=== PATIENT | female | born 1935 | race Caucasian/White ===

== ENCOUNTER 2018-01-16 14:24 | Observation (INO) | payer MEDICARE, SELFPAY ==
[2018-01-16] VITALS (7 sets, daily range): BP systolic 144–220; BP diastolic 69–93; PULSE 58–75; RESP 10–18; TEMP 36.3–37; O2SAT 94–97; BMI 21.6; BMI 22.9
--- NOTE | 2018-01-16 15:19 | CT_ITS ---
STUDY: CT BRAIN WITHOUT CONTRAST REASON FOR EXAM: Female, 82 years old. Confusion RADIATION DOSAGE (If Supplied By Facility): CTDIvol = ( 44.99 ) mGy, DLP = ( 745.49 ) mGycm TECHNIQUE: Transaxial CT imaging of the brain was performed without administration of intravenous contrast material. Individualized dose optimization techniques were used for this CT. COMPARISON: 09/08/2015 FINDINGS: There is no acute bleed or infarct. There are stable chronic ischemic and atrophic changes. The ventricles are normal in configuration. There is no hydrocephalus. The visualized paranasal sinuses are clear. There is fluid in the left mastoid air cells. The right mastoid air cells are clear. There is no skull fracture. CT/Brain/Head without Contrast IMPRESSION: Stable chronic ischemic and atrophic changes. No acute intracranial abnormality. Left mastoid effusion. Electronically Signed: Ag Arriaga, at 16:37 EDT Tel , Service support ,
--- NOTE | 2018-01-16 15:19 | RAD_ITS ---
STUDY: X-RAY CHEST REASON FOR EXAM: Female, 82 years old. Confusion TECHNIQUE: Frontal view of the chest COMPARISON: 01/11/2016 FINDINGS: There are stable emphysematous changes. The lungs are otherwise clear. There are no pleural effusions. There is no pneumothorax. The heart is normal in size. The visualized osseous structures are within normal limits. RAD/Chest 1 View (Portable) IMPRESSION: No acute thoracic pathology. Electronically Signed: Ag Arriaga, at 16:12 EDT Tel , Service support ,
--- NOTE | 2018-01-16 15:20 | EKG12_ITS ---
Test Reason : GEN ILLNESS Blood Pressure : / mmHG Vent. Rate : 055 BPM Atrial Rate : 055 BPM P-R Int : 158 ms QRS Dur : 084 ms QT Int : 448 ms P-R-T Axes : 066 030 079 degrees QTc Int : 428 ms Sinus bradycardia Septal infarct , age undetermined Abnormal ECG Confirmed by SHARONA MATHEW, DULCE ([id number]), editor managing newspaper SAMI BUCKLEY ([id number]) on 01/20/2018 1:41:38 PM Referred By: VAIBHAV Confirmed By:DULCE TABOR MD
--- NOTE | 2018-01-16 15:55 | NURSING ---
LEFT MESSAGE ON JACQUELINE, CASE MANAGEMENT, PHONE
[2018-01-16 15:57] LABS: Absolute Lymphocyte Count 1.33 X10^3/ul (0.83-4.51); Absolute Neutrophil Count 2.9 X10^3/uL (2.0-7.7); Basophil# 0.02 X10^3/uL; Basophil% 0.4 % (0-1); Eosinophil# 0.05 X10^3/uL; Hematocrit 43.8 % (37-47); Hemoglobin 14.4 g/dl (12.0-15.0); Lymphocyte # 1.33 X10^3/ul (4.0); Lymphocyte % 27.1 % (19-41); Mean Corp Hgb Conc 32.9 g/gl (32-36); Mean Corpuscular Hgb 28.3 pg (27.0-32.0); Mean Corpuscular Volume 86.2 fL (81-99); Mean Platelet Vol. 10.5 fl (6.2-12.0); Monocyte# 0.62 X10^3/uL; Monocyte% 12.6 % (0-10); Neutrophil # 2.88 X10^3/uL (2.7-7.7); Neutrophil % 58.7 % (47-70); Platelet Count 236 K/mm3 (150-450); RBC Distribution Width CV 16.8 % (11.6-14.6); RBC Distribution Width SD 53.5 fl (35.1-43.9); Red Blood Count 5.08 M/mm3 (4.2-5.4); White Blood Count 4.9 K/mm3 (4.4-11.0)
[2018-01-16 16:03] LABS: Anion Gap 9 (5-15); BUN 22 mg/dL (7-18); BUN/Creat Ratio 28.6 RATIO (10-20); Calcium,Total 8.7 mg/dL (8.5-10.1); Chloride 109 mmol/L (98-107); Creatinine, Serum 0.77 mg/dL (0.55-1.02); EST Glomerular Filtration Rate 76 mL/min (>60); Est Glom Filt Rate - Afr Amer 92 mL/min (>60); Glucose 101 mg/dL (74-106); POSITIVE COUNT NO; POSITIVE DIFFERENTIAL NO; POSITIVE MORPHOLOGY NO; Potassium 3.9 mmol/L (3.5-5.1); Sodium Level 143 mmol/L (136-145)
--- NOTE | 2018-01-16 16:44 | CM.ED ---
CM consulted re: SNF placement. Patient has [employer] M[employer] PPO, which will require a precertification for half-way placement. I discussed outpatient placement referral options with Marco A, patient's son, at bedside. Due to the weekend, the referral would be placed on Friday. Marco A states that he and his sister usually rotate checking on their mom. His sister is out of town until Friday and Marco A states he works and there will be no one to make sure the patient doesn't wander out of the home. Marco A states that his mother was admitted to an psychiatry hospital, in [place], years ago and was diagnosed with schizophrenia. She was a patient of the counseling center, but missed a few appointments and they closed her case. Marco A states she has not seen a psychiatrist in a couple years. Patient may qualify for half-way medicaid. If patient remains in the hospital, social work may assist with this application. Provider updated. Should placement to half-way need to be made from the hospital, the precertification with [facility] will begin on Friday. Social work/case management will follow.
[2018-01-16 17:06] LABS: Mucous, Urine 0 SEEN /hpf (<or=2+); Red Blood Cells-Urine 0 SEEN /hpf (0-5)
[2018-01-16 17:11] LABS: Color, Urine Yellow (Yellow); Glucose, Dipstick Normal (Normal); Ketone-Dipstick Negative (Negative); Leukocyte Esterase-Dipstick 100 /ul (Negative); Nitrite-Dipstick Negative (Negative); Occult Blood-Urine 10 /ul (Negative); Protein-Dipstick Negative (Negative); Urine Bilirubin Dipstick Negative (Negative); Urine Clarity Sl. Cloudy (Clear); Urine Urobilinogen Normal (Normal)
[2018-01-16 17:27] LABS: Hyaline Cast 0-5 SEEN /lpf (0-5)
[2018-01-16 17:28] LABS: Bacteria 4+ /hpf (None Seen); Squamous Epithelial Cells - UA 10-25 SEEN /hpf (5-10); White Blood Cells 25-50 SEEN /hpf (0-5)
--- NOTE | 2018-01-16 18:09 | NURSING ---
DR GREY FOR DR ESPOSITO
--- NOTE | 2018-01-16 18:12 | ED.VISSUMM ---
- ER Visit Summary Date of Service: 01/16/18 Chief Complaint: Change of mental status History of Present Illness: The patient is a 82 F presenting for evaluation secondary change in mental status. Patient is an independent living, has an underlying history of dementia versus psychiatric disease and is on Haldol. Patient apparently intermittently has been having some issues where she has been wandering over the neighbors houses with her coat off, wandering the streets, and today she was picked up by police while she was walking down the middle of the street when she was supposedly looking for her son. Patient denies any symptoms at this time, son is concerned about her safety and wishes for her to be evaluated for potential increased level of care. Physical Examination: Vital signs are within normal limits, patient is afebrile. General: Patient is well-nourished well-developed and in no acute distress. Head: Normocephalic, atraumatic Eyes: Pupils equal round and reactive bilaterally, extra occular motion intact bialterally ENT: Moist mucous membranes Neck: Supple, no lymphadenopathy, no JVD, no meningismus CVS: Heart regular rate and rhythm, no murmurs, heart sounds are soft, rubs or gallops, radial pulses 2+ bilaterally Resp: Respirations nondistressed, lung sounds clear bilaterally Abdomen: Soft, nontender, nondistended, no palpable masses, normal bowel sounds Back: Nontender Extremities: Nontender, atraumatic, active full range of motion, no peripheral edema Skin: warm, no rashes, no petechia Neuro: Alert and oriented x 4, CN 2-12 intact, no lateralizing neurological defecits Psyc: FLAt affect Test Results: CT brain shows chronic changes. Chest x-ray shows chronic changes per radiology. EKG shows sinus rate of [address] segments normal T waves. CBC chemistry troponin found to be unremarkable, urinalysis shows evidence of infection Emergency Department Course and Treatment: Patient presented secondary to altered mental status. She was worked up for the possibility of delirium she did end up having some evidence of possible UTI she was given a dose of Rocephin. I do spoke with case management about the possibility of placement of the patient out of the emergency department, they state that they would not be able to perform that on Friday. Patient will be admitted for antibiotics, and for evaluation for increased level of care as she seems to be having worsening of her dementia. Disposition: Admission Impression: 1. UTI 2. Encephalopathy This note was generated with [employer] dictation software. It may contain incorrect words, spelling, and punctuation that were not noted in review of the chart prior to signing ED Disposition - Plan for ED Patient: Chief Complaint: General Illness Referrals: Gila Potter DO [Primary Care Provider] -
[2018-01-16] MEDS: Ceftriaxone 1 GM/50 mL Premix x1 IV (18:17)
--- NOTE | 2018-01-16 18:22 | NURSING ---
MED SURG ACUTE CYSTITIS, ENCEPHALOPATHY [place]
--- NOTE | 2018-01-16 19:04 | PCM.HP.STD ---
Problem List (1) Congenital syphilis Status: Chronic (2) Tobacco use Status: Chronic Comment: Quit 15 years prior. (3) COPD (chronic obstructive pulmonary disease) Status: Chronic (4) Obesity (BMI 30.0-34.9) Status: Chronic (5) Hallucination Status: Acute Comment: 2 month ongoing history of hallucinations. Serial work-up w/ regimen treatment and psychiatric facility treatment. (6) Hearing deficit Status: Chronic (7) HTN (hypertension) Status: Chronic (8) Hypokalemia Status: Acute History of Present Illness Date of Admission: 01/16/18 Chief Complaint: Acute Change in mental status The patient is an 82 year old F with history of dementia who was brought to the emergency room to be evaluated due to change in mental status. She currently lives by herself and family reports that she intermittently has been wondering over the neighbors houses with her coat off, wandering the streets looking for her son who is at bedside in the ED. Today she was picked up by police and sent to the emergency room for further evaluation. She is found to have acute cystitis and she was started on IV Rocephin. CT scan of her brain is unremarkable. Patient is being admitted to the hospital for further management and possible ECF placement. When I saw her in the emergency room she was pleasantly confused, she is neither combative nor agitated. Past Medical History Past Medical History (Chronic Problems): Chronic Problems Congenital syphilis (Chronic) Tobacco use (Chronic) Quit 15 years prior. COPD (chronic obstructive pulmonary disease) (Chronic) Obesity (BMI 30.0-34.9) (Chronic) Hearing deficit (Chronic) HTN (hypertension) (Chronic) Allergies No Known Allergies Allergy (Verified 01/16/18 14:25) Home Medications: Ambulatory Orders Medication Instructions Recorded Diltiazem CD [Cardizem CD] 240 mg PO DAILY 01/11/16 Haloperidol [Haldol] 1 mg PO DAILY 01/11/16 Haloperidol [Haldol] 2 mg PO QHS 01/11/16 Vit C/E/Zn/Coppr/Lutein/Zeaxan 1 each PO BID 01/11/16 [Preservision Areds 2 Softgel] Aspirin [Aspirin, Baby] 81 mg PO DAILY@0800 01/16/18 Cholecalciferol (Vitamin D3) 1,000 unit PO DAILY 01/16/18 [Vitamin D3] [place]-3S/Dha/Epa/Fish Oil [Fish 1 each PO BID 01/16/18 Oil 1,200 mg Softgel] Surgical History: cataract, hysterectomy, tonsillectomy Psychiatric History: - - Hallucinations, psychosis. 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 VTE Information - Inpt Only VTE Present on Admission: No VTE Mechan Device Prophylaxis: SCD's VTE Pharm Prophylaxis ordered?: No - Physical Exam General: Alert, Oriented x3 Oral: Moist Mucosa Neck: Supple, No JVD Lungs: Clear to auscultation Cardiovascular: Regular rate, Regular Rhythm, Normal S1, Normal S2 Abdomen: Bowel Sounds Present, Soft, Non Tender Extremities: No clubbing, No edema Musculoskeletal: No Tenderness to Palpation of Joints or Extremities Neurological: Cranial nerves II-XII grossly intact, Motor Exam 5/5 strength throughout Psych/Mental Status: Anxious Vital Signs Temp Pulse Resp BP Pulse Ox 98.6 F 75 16 220/75 H 96 01/16/18 18:27 01/16/18 18:27 01/16/18 18:27 01/16/18 18:27 01/16/18 18:27 Assessment/Plan 1. Acute encephalopathy; precipitated by acute urinary tract infection. We will treat her urine infection , we will however obtain MRI of the brain. 2. Acute cystitis; will continue on IV Rocephin and urine cultures. 3. Dementia with behavioral disturbance; continue her antipsychotic medications. 4. generalized weakness; we will obtain TSH, physical and Occupational Therapy. 5. Disposition; it is unsafe to live by herself , she would benefit from a snf facility placement. 6. DVT Prophylaxis with Lovenox. Code Visit Inpatient E&M: 38563 Init Hosp L2
--- NOTE | 2018-01-16 19:08 | HP.PCM_ITS ---
Problem List (1) Congenital syphilis Status: Chronic (2) Tobacco use Status: Chronic Comment: Quit 15 years prior. (3) COPD (chronic obstructive pulmonary disease) Status: Chronic (4) Obesity (BMI 30.0-34.9) Status: Chronic (5) Hallucination Status: Acute Comment: 2 month ongoing history of hallucinations. Serial work- up w/ regimen treatment and psychiatric facility treatment. (6) Hearing deficit Status: Chronic (7) HTN (hypertension) Status: Chronic (8) Hypokalemia Status: Acute History of Present Illness Date of Admission: 01/16/18 Chief Complaint: Acute Change in mental status The patient is an 82 year old F with history of dementia who was brought to the emergency room to be evaluated due to change in mental status. She currently lives by herself and family reports that she intermittently has been wondering over the neighbors houses with her coat off, wandering the streets looking for her son who is at bedside in the ED. Today she was picked up by police and sent to the emergency room for further evaluation. She is found to have acute cystitis and she was started on IV Rocephin. CT scan of her brain is unremarkable. Patient is being admitted to the hospital for further management and possible ECF placement. When I saw her in the emergency room she was pleasantly confused, she is neither combative nor agitated. Past Medical History Past Medical History (Chronic Problems): Chronic Problems Congenital syphilis (Chronic) Tobacco use (Chronic) Quit 15 years prior. COPD (chronic obstructive pulmonary disease) (Chronic) Obesity (BMI 30.0-34.9) (Chronic) Hearing deficit (Chronic) HTN (hypertension) (Chronic) Allergies No Known Allergies Allergy (Verified 01/16/18 14:25) Home Medications: Ambulatory Orders Medication Instructions Recorded Diltiazem CD [Cardizem CD] 240 mg PO DAILY 01/11/16 Haloperidol [Haldol] 1 mg PO DAILY 01/11/16 Haloperidol [Haldol] 2 mg PO QHS 01/11/16 Vit C/E/Zn/Coppr/Lutein/Zeaxan 1 each PO BID 01/11/16 [Preservision Areds 2 Softgel] Aspirin [Aspirin, Baby] 81 mg PO DAILY@0800 01/16/18 Cholecalciferol (Vitamin D3) 1,000 unit PO DAILY 01/16/18 [Vitamin D3] [place]-3S/Dha/Epa/Fish Oil [Fish 1 each PO BID 01/16/18 Oil 1,200 mg Softgel] Surgical History: cataract, hysterectomy, tonsillectomy Psychiatric History: - - Hallucinations, psychosis. 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 VTE Information - Inpt Only VTE Present on Admission: No VTE Mechan Device Prophylaxis: SCD's VTE Pharm Prophylaxis ordered?: No - Physical Exam General: Alert, Oriented x3 Oral: Moist Mucosa Neck: Supple, No JVD Lungs: Clear to auscultation Cardiovascular: Regular rate, Regular Rhythm, Normal S1, Normal S2 Abdomen: Bowel Sounds Present, Soft, Non Tender Extremities: No clubbing, No edema Musculoskeletal: No Tenderness to Palpation of Joints or Extremities Neurological: Cranial nerves II-XII grossly intact, Motor Exam 5/5 strength throughout Psych/Mental Status: Anxious Vital Signs Temp Pulse Resp BP Pulse Ox 98.6 F 75 16 220/75 H 96 01/16/18 18:27 01/16/18 18:27 01/16/18 18:27 01/16/18 18:27 01/16/18 18:27 Assessment/Plan 1. Acute encephalopathy; precipitated by acute urinary tract infection. We will treat her urine infection , we will however obtain MRI of the brain. 2. Acute cystitis; will continue on IV Rocephin and urine cultures. 3. Dementia with behavioral disturbance; continue her antipsychotic medications. 4. generalized weakness; we will obtain TSH, physical and Occupational Therapy. 5. Disposition; it is unsafe to live by herself , she would benefit from a chcf facility placement. 6. DVT Prophylaxis with Lovenox. Code Visit Inpatient E&M: 77986 Init Hosp L2
[2018-01-16] MEDS: Omega-3 Acid Ethyl Esters 1 GM Capsule PO (23:46)
[2018-01-16] MEDS: Haloperidol 1 MG Tablet 2 MG PO (23:46)
[2018-01-17 02:45] VITALS: BP 135/65; PULSE 56; RESP 16; TEMP 36.7; O2SAT 96
--- NOTE | 2018-01-17 07:42 | MRI_ITS ---
STUDY: MRI BRAIN WITHOUT CONTRAST REASON FOR EXAM: Female, 82 years old. Confusion ,h/a, -- History of dementia,hallucinations TECHNIQUE: Standardized multiplanar fat and water weighted pulse sequences were obtained. COMPARISON: July 17, 2015 FINDINGS: There is mild cerebral atrophy with widening of the extra-axial spaces and ventricular dilatation. There are multiple white matter hyperintensities, distributed throughout the deep white matter tracts of the cerebral hemispheres, consistent with moderate chronic white matter ischemic changes. Normal bilateral basal ganglia. Normal thalami. There is no extra-axial fluid accumulation. Normal flow voids within the major intracranial circulation suggesting patency by spin echo criteria. Normal sella turcica, pituitary gland, infundibular stalk, optic chiasm and hypothalamus. Normal tectal plate and pineal gland. Normal visualized paranasal sinuses. There is fluid within bilateral mastoid air cells. MRI/Brain without Contrast IMPRESSION: No acute intracranial abnormality. Moderate chronic microvascular ischemic changes. Electronically Signed: Jaida Dodson MD at 10:12 EDT Tel , Service support ,
[2018-01-17 08:43] VITALS: BP 129/69; PULSE 75; RESP 16; TEMP 36.7; O2SAT 93
[2018-01-17] MEDS: Aspirin 81 MG TAB.CHEW PO (08:45)
[2018-01-17] MEDS: Omega-3 Acid Ethyl Esters 1 GM Capsule PO ×2 (10:41→22:35)
[2018-01-17] MEDS: Enoxaparin 40 MG/0.4 ML Syringe SC (10:41)
[2018-01-17] MEDS: Haloperidol 1 MG Tablet PO (10:41)
[2018-01-17] MEDS: dilTIAZem CD 240 MG Capsule PO (10:41)
[2018-01-17] MEDS: Ceftriaxone 1 GM/50 ML BAG IV (11:07)
[2018-01-17] MEDS: Nystatin Powder 15gm Bottle 1 APPLIC TOPICAL ×2 (11:11→22:35)
--- NOTE | 2018-01-17 11:53 | CASEMGMT ---
SOCIAL WORK: Referral received this date from moisture meter reader to call patient's son, Marco A, regarding anticipated need for Medicaid application for ECF placement. SW initiated contact with Marco A at [phone]; introduced self and SW role at [facility]. Offered to assist with completion of Medicaid application however he reports having to work today and tomorrow. Per his request, Medicaid application left in patient's room for him with instructions to call SW, Lilliana Alston, on Friday to make arrangements to give her completed application; contact information for Le[facility] provided. Son reports that patient's daughter, Peggy, is currently vacationing in [place] and will be returning to the area on Friday evening. Her cell phone is [phone]. He states that Peggy is primary POA and he, as step-son, is secondary POA. No further issues at this time. Memo C[place] [place]
--- NOTE | 2018-01-17 12:21 | PN_ITS ---
Subjective: CC: Acute change in mental status Objective: This is an 82-year-old female who presented with acute change in mental status, she is found to have acute cystitis is receiving IV Rocephin. MRI of the brain is nonacute. Vitals/I&O's: Vital Signs Temp Pulse Resp BP Pulse Ox 98.0 F 75 16 129/69 H 93 01/17/18 08:43 01/17/18 08:43 01/17/18 08:43 01/17/18 08:43 01/17/18 08:43 Oxygen Delivery Method Room Air Weight: 64 kg Body Mass Index (BMI) 22.9 Intake and Output for Last 24 Hours 01/15/18 01/16/18 01/17/18 23:59 23:59 23:59 Intake Total 200 / 200 Balance 200 / 200 General: Alert, Oriented x3 HEENT: Atraumatic Oral: Moist Mucosa Neck: Supple, No JVD Lungs: Clear to auscultation, No wheeze, No rales Cardiovascular: Regular rate, Normal S1, Normal S2 Abdomen: Bowel Sounds Present, Soft, Non Tender, Bowel Sounds Not Present Extremities: No edema Neurological: Cranial nerves II-XII grossly intact, Motor Exam 5/5 strength throughout Current Medications Aspirin (Aspirin, Baby) 81 mg PO DAILY@0800 COUNTS INCLUDE 234 BEDS AT THE [facility] Last Admin: 01/17/18 08:45 Dose: 81 mg Cholecalciferol (Vitamin D) 1,000 unit PO DAILY COUNTS INCLUDE 234 BEDS AT THE [facility] Last Admin: 01/17/18 10:41 Dose: 1,000 unit Diltiazem HCl (Cardizem Cd) 240 mg PO DAILY COUNTS INCLUDE 234 BEDS AT THE [facility] Last Admin: 01/17/18 10:41 Dose: 240 mg Enoxaparin Sodium (Lovenox) 40 mg SC DAILY@1000 COUNTS INCLUDE 234 BEDS AT THE [facility] Last Admin: 01/17/18 10:41 Dose: 40 mg Haloperidol (Haldol) 2 mg PO QHS COUNTS INCLUDE 234 BEDS AT THE [facility] Last Admin: 01/16/18 23:46 Dose: 2 mg Haloperidol (Haldol) 1 mg PO DAILY COUNTS INCLUDE 234 BEDS AT THE [facility] Last Admin: 01/17/18 10:41 Dose: 1 mg Ceftriaxone Sodium (Rocephin) 1 gm in 50 mls @ 100 mls/hr IV Q24 COUNTS INCLUDE 234 BEDS AT THE [facility] Last Admin: 01/17/18 11:07 Dose: 100 mls/hr Magnesium Hydroxide (Milk Of Magnesia) 30 ml PO DAILY PRN PRN PRN Reason: Constipation [facility]it[facility] Last Admin: 01/17/18 08:45 Dose: 1 tablet Nystatin (Mycostatin Powder) 1 applic TOPICAL BID IAN PRN Reason: Protocol Last Admin: 01/17/18 11:11 Dose: 1 applicatio Qrwhy-[id number] Ethyl Esters (Lovaza) 1 gm PO BID IAN Last Admin: 01/17/18 10:41 Dose: 1 gm Sodium Chloride () 5 - 30 ml IV UD PRN PRN Reason: SALINE FLUSH Medical Necessity - Tobacco Use Smoking Status: Former smoker Assessment/Plan 1. Acute encephalopathy; this is precipitated by her urinary tract infection and has improved with antibiotic therapy. 2. Acute cystitis; urine culture is growing gram-negative rods , we will continue on IV Rocephin . 3. Dementia with behavioral disturbance; we tiera continue her antipsychotic medications. 4. generalized weakness; we will obtain TSH, physical and Occupational Therapy. 5. Disposition; discharge planning to ECF. 6. DVT Prophylaxis with Lovenox. Code Visit Inpatient E&M: 72479 Subs Hosp L2
[2018-01-17 14:43] VITALS: BP 133/67; PULSE 76; RESP 20; TEMP 36.8; O2SAT 92
[2018-01-17 20:00] VITALS: BP 132/71; PULSE 68; PULSE 70; RESP 15; TEMP 36.5; O2SAT 92
[2018-01-17] MEDS: Haloperidol 1 MG Tablet 2 MG PO (22:35)
[2018-01-18 04:00] VITALS: BP 119/59; PULSE 68; RESP 15; TEMP 36.2; O2SAT 91
[2018-01-18 04:20] VITALS: PULSE 68; RESP 15; O2SAT 92
--- NOTE | 2018-01-18 08:34 | PN_ITS ---
Subjective: CC: Acute mental status Objective: Interval history: Chapis Valenzuela is an 82 year old F with history of advanced dementia who was brought to the emergency room due to change in mental status. She currently lives by herself and family reported that she intermittently has been wondering over the neighbors houses with her coat off, wandering the streets looking for her son who is at bedside in the ED. She was picked up by police on the DOA and sent to the emergency room for further evaluation. She was found to have acute cystitis with urine cultures now growing gram-negative rods for which he is receiving IV Rocephin. CT scan/ MRI of her brain showed no acute findings. Patient has improved with antibiotic therapy, I believe she is at her baseline . She is now awaiting discharge arrangement to senior living facility. Vitals/I&O's: Vital Signs Temp Pulse Resp BP Pulse Ox 97.1 F L 68 15 119/59 L 92 01/18/18 04:00 01/18/18 04:20 01/18/18 04:20 01/18/18 04:00 01/18/18 04:20 Oxygen Delivery Method Room Air Weight: 64 kg Body Mass Index (BMI) 22.9 Intake and Output for Last 24 Hours 01/16/18 01/17/18 01/18/18 23:59 23:59 23:59 Intake Total 2240 / 2240 100 / 100 Balance 2240 / 2240 100 / 100 General: Alert, Confused HEENT: Atraumatic Neck: Supple, No JVD Lungs: Clear to auscultation Cardiovascular: Regular rate, Normal S1, Normal S2 Abdomen: Bowel Sounds Present, Soft, Non Tender Current Medications Aspirin (Aspirin, Baby) 81 mg PO DAILY@0800 [facility] Last Admin: 01/17/18 08:45 Dose: 81 mg Cholecalciferol (Vitamin D) 1,000 unit PO DAILY [facility] Last Admin: 01/17/18 10:41 Dose: 1,000 unit Diltiazem HCl (Cardizem Cd) 240 mg PO DAILY [facility] Last Admin: 01/17/18 10:41 Dose: 240 mg Enoxaparin Sodium (Lovenox) 40 mg SC DAILY@1000 [facility] Last Admin: 01/17/18 10:41 Dose: 40 mg Haloperidol (Haldol) 2 mg PO QHS [facility] Last Admin: 01/17/18 22:35 Dose: 2 mg Haloperidol (Haldol) 1 mg PO DAILY [facility] Last Admin: 01/17/18 10:41 Dose: 1 mg Ceftriaxone Sodium (Rocephin) 1 gm in 50 mls @ 100 mls/hr IV Q24 [facility] Last Admin: 01/17/18 11:07 Dose: 100 mls/hr Magnesium Hydroxide (Milk Of Magnesia) 30 ml PO DAILY PRN PRN PRN Reason: Constipation Multivitamins/Minerals (Ocuvite) 1 tablet PO BIDCM [facility] Last Admin: 01/17/18 18:06 Dose: 1 tablet Nystatin (Mycostatin Powder) 1 applic TOPICAL BID IAN PRN Reason: Protocol Last Admin: 01/17/18 22:35 Dose: 1 applicatio Zrhbz-4-Khmi Ethyl Esters (Lovaza) 1 gm PO BID [facility] Last Admin: 01/17/18 22:35 Dose: 1 gm Sodium Chloride () 5 - 30 ml IV UD PRN PRN Reason: SALINE FLUSH Medical Necessity - Tobacco Use Smoking Status: Former smoker Assessment/Plan 1. Acute encephalopathy; this is precipitated by urinary tract infection, she has improved to baseline after antibiotic therapy. 2. Acute cystitis; urine culture is growing gram-negative rods , we will continue on IV Rocephin until final organism identification and sensitivities back . 3. Dementia with behavioral disturbance; we will continue her antipsychotic medications without change. 4. generalized weakness; we will obtain TSH, physical and Occupational Therapy. 5. Disposition; discharge planning to ECF. 6. DVT Prophylaxis with Lovenox. Code Visit Inpatient E&M: 61095 Subs Hosp L2
[2018-01-18] MEDS: Aspirin 81 MG TAB.CHEW PO (09:01)
[2018-01-18 09:02] LABS: Hematocrit 44.6 % (37-47); Hemoglobin 14.1 g/dl (12.0-15.0); Mean Corp Hgb Conc 31.6 g/gl (32-36); Mean Corpuscular Hgb 28.4 pg (27.0-32.0); Mean Corpuscular Volume 89.7 fL (81-99); Mean Platelet Vol. 10.3 fl (6.2-12.0); Platelet Count 225 K/mm3 (150-450); RBC Distribution Width CV 17.3 % (11.6-14.6); RBC Distribution Width SD 56.7 fl (35.1-43.9); Red Blood Count 4.97 M/mm3 (4.2-5.4); White Blood Count 5.1 K/mm3 (4.4-11.0)
[2018-01-18 09:03] LABS: Scan Indicated on CBC? Y/N NO
[2018-01-18 09:31] LABS: Anion Gap 8 (5-15); BUN 14 mg/dL (7-18); BUN/Creat Ratio 21.7 RATIO (10-20); Calcium,Total 8.6 mg/dL (8.5-10.1); Chloride 109 mmol/L (98-107); Creatinine, Serum 0.64 mg/dL (0.55-1.02); EST Glomerular Filtration Rate 94 mL/min (>60); Est Glom Filt Rate - Afr Amer 113 mL/min (>60); Estimated Creatinine Clearance 39.03 ml/min; Glucose 96 mg/dL (74-106); Potassium 4.3 mmol/L (3.5-5.1); Sodium Level 144 mmol/L (136-145)
[2018-01-18 10:46] VITALS: BP 127/45; PULSE 60; RESP 20; TEMP 36.4; O2SAT 97
[2018-01-18] MEDS: Enoxaparin 40 MG/0.4 ML Syringe SC (10:48)
[2018-01-18] MEDS: Ceftriaxone 1 GM/50 ML BAG IV (10:48)
[2018-01-18] MEDS: dilTIAZem CD 240 MG Capsule PO (10:49)
[2018-01-18] MEDS: Haloperidol 1 MG Tablet PO (10:49)
[2018-01-18] MEDS: Nystatin Powder 15gm Bottle 1 APPLIC TOPICAL ×2 (10:49→21:23)
[2018-01-18] MEDS: Omega-3 Acid Ethyl Esters 1 GM Capsule PO ×2 (10:49→21:23)
[2018-01-18 17:52] VITALS: BP 123/50; PULSE 66; RESP 18; TEMP 37; O2SAT 93
[2018-01-18 21:00] VITALS: BP 129/50; PULSE 67; RESP 15; TEMP 37; O2SAT 95
[2018-01-18] MEDS: Haloperidol 1 MG Tablet 2 MG PO (21:23)
[2018-01-18 22:00] VITALS: RESP 16
[2018-01-19 05:00] VITALS: BP 118/66; PULSE 64; PULSE 67; RESP 15; TEMP 36.7; O2SAT 96
[2018-01-19 07:18] VITALS: BP 134/62; PULSE 56; RESP 16; TEMP 36.6; O2SAT 92
[2018-01-19] MEDS: Aspirin 81 MG TAB.CHEW PO (08:37)
[2018-01-19] MEDS: Nystatin Powder 15gm Bottle 1 APPLIC TOPICAL ×2 (08:38→21:08)
[2018-01-19] MEDS: Haloperidol 1 MG Tablet PO (08:38)
[2018-01-19] MEDS: dilTIAZem CD 240 MG Capsule PO (08:38)
[2018-01-19] MEDS: Omega-3 Acid Ethyl Esters 1 GM Capsule PO ×2 (08:38→21:08)
[2018-01-19] MEDS: Enoxaparin 40 MG/0.4 ML Syringe SC (08:38)
[2018-01-19] MEDS: Pantoprazole Sodium 40 MG Tablet PO (08:40)
[2018-01-19] MEDS: 0.9% NaCl Peripheral Flush Adult/Peds IV (09:22)
[2018-01-19] MEDS: Ceftriaxone 1 GM/50 ML BAG IV (09:22)
[2018-01-19 10:52] VITALS: BP 107/47; PULSE 58; RESP 16; TEMP 37; O2SAT 92
--- NOTE | 2018-01-19 11:03 | CASEMGMT ---
Social Work Note SW called BARON, Pt's daughter Peggy, to ask about discharge planning. PerPeggy the plan is for the patient to go to a Long Term Facility and requests that this SW call Marco A, Pt's son, to ask about which facility to go with. SW placed call to Marco A and left message regarding senior care placement. SW informed Marco A that the [facility] facilities in network with [facility] are [facility], [facility], and possibly [facility]. SW waiting for call back from Marco A. [facility] will continue to follow. Plan: Long Term Facility pending facility and pre-cert Marisela Quiñones EXTERNAL GRINDER, GROUP FITNESS INSTRUCTOR
--- NOTE | 2018-01-19 14:12 | CASEMGMT ---
MADISON received call from pt's son Marco A regarding [facility] placement. Marco A states that he would like to try [facility] as his first choice and that his second choice would be [facility] for [facility] placement. MADISON informed Marco A that she will have to check with [facility] to see if they are in network with pt's insurance. Marco A states understanding. Marco A asked how he would be able to complete [employer]. MADISON informed Marco A that as long as pt is alert and orientated he will be able to complete POA at hospital. MarcoA states understanding. Marco A also states that he will be completing Medicaid application and that he will be into the hospital today. MADISON placed called to [facility] and spoke with Mahi. Per Mahi, [facility] accepts [employer]. MADISON faxed clinicals to [facility]. Plan: [facility] pending approved pre-cert.
--- NOTE | 2018-01-19 14:37 | CASEMGMT ---
Social Work Note LIZET Champagne stating that they are not able to accept at this time. Will fax updated clinicals to [facility]. Stefanie Alston, ETL ANALYST DEVELOPER, OPTICIAN APPRENTICE
--- NOTE | 2018-01-19 14:49 | CHAPLAIN ---
Type of Pastoral Visit _x__ Initial Visit ___ Follow-up Visit ___ On-call Visit ___ General Patient Visit ___ Spiritual Assessment ___ Family Conference ___ Bereavement ___ Rapid Response ___ Code Blue ___ Other (describe below) Pastoral Care Referral From _x__ Patient ___ Family ___ Nurse ___ Physician ___ Special Education Tutor ___ Geriatric Nurse Assistant ___ Other (describe below) Sacrament/Intervention ___ Active listening ___ Anointing ___ Yarsanism ___ Bereavement ___ Communion ___ Tamiko exploration ___ ___ Life review _x__ Prayer ___ Reconciliation ___ Sacrament of Sick _x__ Supportive presence ___ Wedding ___ Other (describe below) Pastoral Comments patient is very hard of hearing; patient says that she is doing ok but that a prayer would be welcome; pt answers questions slowly and does not engage in conversation otherwise;
--- NOTE | 2018-01-19 14:51 | CASEMGMT ---
LI RODRIGUES attempted to complete POLLOCK with daughter and [place], per Peggy's she is currently on a flight at this time. LI RODRIGUES called son Marco A Valenzuela and voice message left with return contact information. Patient is alert and confused. LI RODRIGUES will attempt POLLOCK for with family when available.
[2018-01-19 14:56] VITALS: BP 119/81; PULSE 64; RESP 16; TEMP 37; O2SAT 92
--- NOTE | 2018-01-19 16:16 | CASEMGMT ---
Social Work Note Call from Sadie at [facility] stating that they can accept. Inquires if pt will discharge on IV antibiotics. Inform that SW does not believe, but will confirm with physician. Physician paged as Sadie will not initiate pre-cert until IV or PO antibiotic known. Will continue to follow and assist with discharge planning. Plan: [facility] for rehabilitation. Stefanie Alston, COW TESTER, EXHIBIT PREPARATOR
--- NOTE | 2018-01-19 17:37 | PCM.PN.HOSP ---
Subjective: Patient has advanced dementia. She is very hard of hearing. Vitals/I&O's: Vital Signs Temp Pulse Resp BP Pulse Ox 98.6 F 64 16 119/81 H 92 01/19/18 14:56 01/19/18 14:56 01/19/18 14:56 01/19/18 14:56 01/19/18 14:56 Oxygen Flow Rate (L/min) 2 Oxygen Delivery Method Room Air Weight: 141 lb 1.533 oz Body Mass Index (BMI) 22.9 Intake and Output for Last 24 Hours 01/17/18 01/18/18 01/19/18 23:59 23:59 23:59 Intake Total 2240 / 2240 100 / 100 500 / 500 Output Total 300 / 300 Balance 2240 / 2240 100 / 100 200 / 200 General: Alert, Cooperative HEENT: Atraumatic, PERRLA, EOMI, Normocephalic Oral: Moist Mucosa Neck: Supple, No JVD, Negative Carotid Bruits Lungs: Clear to auscultation, Normal air movement Cardiovascular: Regular rate, Regular Rhythm, Normal S1, Normal S2, No murmurs Abdomen: Bowel Sounds Present, Soft, Non Tender, Non-Distended Extremities: No edema, Capillary Refill Less than 3 Seconds Skin: No rashes, No breakdown Musculoskeletal: Arthritic Changes Current Medications Aspirin (Aspirin, Baby) 81 mg PO DAILY@0800 [facility] Last Admin: 01/19/18 08:37 Dose: 81 mg Cholecalciferol (Vitamin D) 1,000 unit PO DAILY [facility] Last Admin: 01/19/18 08:39 Dose: 1,000 unit Diltiazem HCl (Cardizem Cd) 240 mg PO DAILY [facility] Last Admin: 01/19/18 08:38 Dose: 240 mg Enoxaparin Sodium (Lovenox) 40 mg SC DAILY@1000 [facility] Last Admin: 01/19/18 08:38 Dose: 40 mg Haloperidol (Haldol) 2 mg PO QHS [facility] Last Admin: 01/18/18 21:23 Dose: 2 mg Haloperidol (Haldol) 1 mg PO DAILY [facility] Last Admin: 01/19/18 08:38 Dose: 1 mg Ceftriaxone Sodium (Rocephin) 1 gm in 50 mls @ 100 mls/hr IV Q24 [facility] Last Admin: 01/19/18 09:22 Dose: 100 mls/hr Magnesium Hydroxide (Milk Of Magnesia) 30 ml PO DAILY PRN PRN PRN Reason: Constipation Multivitamins/Minerals (Ocuvite) 1 tablet PO BIDCM [facility] Last Admin: 01/19/18 08:37 Dose: 1 tablet Nystatin (Mycostatin Powder) 1 applic TOPICAL BID IAN PRN Reason: Protocol Last Admin: 01/19/18 08:38 Dose: 1 applicatio [id number]-8-[id number] Ethyl Esters (Lovaza) 1 gm PO BID [facility] Last Admin: 01/19/18 08:38 Dose: 1 gm Pantoprazole Sodium (Protonix) 40 mg PO DAILY [facility] Last Admin: 01/19/18 08:40 Dose: 40 mg Sodium Chloride () 5 - 30 ml IV UD PRN PRN Reason: SALINE FLUSH Last Admin: 01/19/18 09:22 Dose: 10 ml Medical Necessity - Tobacco Use Smoking Status: Former smoker Assessment/Plan This is a 82-year-old female with history of advanced dementia was admitted for altered mental status. She has been found wandering around the neighborhood and disorganized behavior. She found to have UTI. 1. Acute encephalopathy; this is precipitated by urinary tract infection, she has improved to baseline after antibiotic therapy. 2. Acute cystitis due to Morganella morganii; urine culture reported as Morganella morganii sensitive to Rocephin. Will change to Cipro at the time of discharge. 3. Dementia with behavioral disturbance; we will continue her antipsychotic medications without change. 4. generalized weakness; we will obtain TSH, physical and Occupational Therapy. 5. Disposition; discharge planning to ECF. 6. DVT Prophylaxis with Lovenox. Code Visit Inpatient E&M: 71125 [facility] Hosp L3
--- NOTE | 2018-01-19 17:44 | PN_ITS ---
Subjective: Patient has advanced dementia. She is very hard of hearing. Vitals/I&O's: Vital Signs Temp Pulse Resp BP Pulse Ox 98.6 F 64 16 119/81 H 92 01/19/18 14:56 01/19/18 14:56 01/19/18 14:56 01/19/18 14:56 01/19/18 14:56 Oxygen Flow Rate (L/min) 2 Oxygen Delivery Method Room Air Weight: 141 lb 1.533 oz Body Mass Index (BMI) 22.9 Intake and Output for Last 24 Hours 01/17/18 01/18/18 01/19/18 23:59 23:59 23:59 Intake Total 2240 / 2240 100 / 100 500 / 500 Output Total 300 / 300 Balance 2240 / 2240 100 / 100 200 / 200 General: Alert, Cooperative HEENT: Atraumatic, PERRLA, EOMI, Normocephalic Oral: Moist Mucosa Neck: Supple, No JVD, Negative Carotid Bruits Lungs: Clear to auscultation, Normal air movement Cardiovascular: Regular rate, Regular Rhythm, Normal S1, Normal S2, No murmurs Abdomen: Bowel Sounds Present, Soft, Non Tender, Non-Distended Extremities: No edema, Capillary Refill Less than 3 Seconds Skin: No rashes, No breakdown Musculoskeletal: Arthritic Changes Current Medications Aspirin (Aspirin, Baby) 81 mg PO DAILY@0800 [facility] Last Admin: 01/19/18 08:37 Dose: 81 mg Cholecalciferol (Vitamin D) 1,000 unit PO DAILY [facility] Last Admin: 01/19/18 08:39 Dose: 1,000 unit Diltiazem HCl (Cardizem Cd) 240 mg PO DAILY [facility] Last Admin: 01/19/18 08:38 Dose: 240 mg Enoxaparin Sodium (Lovenox) 40 mg SC DAILY@1000 [facility] Last Admin: 01/19/18 08:38 Dose: 40 mg Haloperidol (Haldol) 2 mg PO QHS [facility] Last Admin: 01/18/18 21:23 Dose: 2 mg Haloperidol (Haldol) 1 mg PO DAILY [facility] Last Admin: 01/19/18 08:38 Dose: 1 mg Ceftriaxone Sodium (Rocephin) 1 gm in 50 mls @ 100 mls/hr IV Q24 [facility] Last Admin: 01/19/18 09:22 Dose: 100 mls/hr Magnesium Hydroxide (Milk Of Magnesia) 30 ml PO DAILY PRN PRN PRN Reason: Constipation Multivitamins/Minerals (Ocuvite) 1 tablet PO BIDCM [facility] Last Admin: 01/19/18 08:37 Dose: 1 tablet Nystatin (Mycostatin Powder) 1 applic TOPICAL BID IAN PRN Reason: Protocol Last Admin: 01/19/18 08:38 Dose: 1 applicatio Uqubo-3-Itqo Ethyl Esters (Lovaza) 1 gm PO BID [facility] Last Admin: 01/19/18 08:38 Dose: 1 gm Pantoprazole Sodium (Protonix) 40 mg PO DAILY [facility] Last Admin: 01/19/18 08:40 Dose: 40 mg Sodium Chloride () 5 - 30 ml IV UD PRN PRN Reason: SALINE FLUSH Last Admin: 01/19/18 09:22 Dose: 10 ml Medical Necessity - Tobacco Use Smoking Status: Former smoker Assessment/Plan This is a 82-year-old female with history of advanced dementia was admitted for altered mental status. She has been found wandering around the neighborhood and disorganized behavior. She found to have UTI. 1. Acute encephalopathy; this is precipitated by urinary tract infection, she has improved to baseline after antibiotic therapy. 2. Acute cystitis due to Morganella morganii; urine culture reported as Morganella morganii sensitive to Rocephin. Will change to Cipro at the time of discharge. 3. Dementia with behavioral disturbance; we will continue her antipsychotic medications without change. 4. generalized weakness; we will obtain TSH, physical and Occupational Therapy. 5. Disposition; discharge planning to ECF. 6. DVT Prophylaxis with Lovenox. Code Visit Inpatient E&M: 88187 [facility] Hosp L3
[2018-01-19 21:04] VITALS: BP 137/57; PULSE 64; RESP 14; TEMP 36.4; O2SAT 94
[2018-01-19] MEDS: Haloperidol 1 MG Tablet 2 MG PO (21:08)
[2018-01-20 03:04] VITALS: BP 138/66; PULSE 62; RESP 16; TEMP 36.3; O2SAT 95
--- NOTE | 2018-01-20 08:09 | CASEMGMT ---
Social Work Note Confirm with attending physician that the pt is not going to be discharged on IV antibiotics. Placed call to Sadie at [facility] to update and pre-cert to be initiated. to continue to follow and assist with discharge planning. Plan: [facility] pending pre-cert. Stefanie Alston, RUG CLIPPER, LINSEED OIL PRESS TENDER
[2018-01-20 09:35] VITALS: BP 137/53; PULSE 63; RESP 18; TEMP 36.4; O2SAT 96
[2018-01-20] MEDS: Pantoprazole Sodium 40 MG Tablet PO (09:39)
[2018-01-20] MEDS: dilTIAZem CD 240 MG Capsule PO (09:39)
[2018-01-20] MEDS: Omega-3 Acid Ethyl Esters 1 GM Capsule PO ×2 (09:39→21:14)
[2018-01-20] MEDS: Aspirin 81 MG TAB.CHEW PO (09:39)
[2018-01-20] MEDS: Haloperidol 1 MG Tablet PO (09:39)
[2018-01-20] MEDS: Nystatin Powder 15gm Bottle 1 APPLIC TOPICAL ×2 (09:40→21:15)
[2018-01-20] MEDS: Enoxaparin 40 MG/0.4 ML Syringe SC (09:40)
[2018-01-20] MEDS: Ceftriaxone 1 GM/50 ML BAG IV (09:40)
[2018-01-20] MEDS: 0.9% NaCl Peripheral Flush Adult/Peds IV (09:42)
--- NOTE | 2018-01-20 10:42 | CASEMGMT ---
POLLOCK form completed with HPOA daughter Peggy. No concerns or questions voiced at this time. Copy of signed form provided to family with Medicare Inpatient vs Outpatient information packet. Signed copy filed in chart.
--- NOTE | 2018-01-20 10:47 | CASEMGMT ---
Social Work Note Met with pt, pt's son Marco A and pt's daughter Peggy to give back original Medicaid Application. Informed pt and family that this worker faxed Medicaid application to [facility]. Informed pt and pt's family that [facility] will accept patient and that we are waiting for pre-cert. Family was receptive to this. [facility] need to call in regards to Medicaid application. Pt and pt's family denied additional needs at this time. Plan: [facility] pending pre-cert. Marisela Quiñones MSW, PRINT SHOP MANAGER.
--- NOTE | 2018-01-20 11:34 | CASEMGMT ---
Social Work Note Call from [facility]ie confirming that they can accept and that pre-cert has been started. States that [facility] is coming to do an on-site just to determine whether the pt is appropriate for memory care or their unsecured unit. [facility] will be here this afternoon. Pt to discharge to [facility] once pre-cert obtained. Plan: [facility] pending pre-cert. Stefanie Alston, HOTEL SERVICE SUPERVISOR, PATIENT REGISTRATION MANAGER
--- NOTE | 2018-01-20 12:46 | PCM.PN.HOSP ---
Subjective: Seen and examined. Patient is very hard of hearing and patient has slowly progressive dementia. Talk to the patient's son and daughter and they gave good history of progressive worsening dementia with forgetfulness of common bath, neighborhood and names. Vitals/I&O's: Vital Signs Temp Pulse Resp BP Pulse Ox 97.5 F L 63 18 137/53 H 96 01/20/18 09:35 01/20/18 09:35 01/20/18 09:35 01/20/18 09:35 01/20/18 09:35 Oxygen Flow Rate (L/min) 2 Oxygen Delivery Method Room Air Weight: 141 lb 1.533 oz Body Mass Index (BMI) 22.9 Intake and Output for Last 24 Hours 01/18/18 01/19/18 01/20/18 23:59 23:59 23:59 Intake Total 100 / 100 950 / 950 800 / 800 Output Total 300 / 300 600 / 600 Balance 100 / 100 650 / 650 200 / 200 General: Alert, Oriented x3, Cooperative HEENT: Atraumatic, PERRLA, EOMI, Normocephalic Neck: Supple, No JVD, Negative Carotid Bruits Lungs: Clear to auscultation, Normal air movement, No rhonchi, No wheeze, No rales Cardiovascular: Regular rate, Regular Rhythm, Normal S1, Normal S2, No murmurs Abdomen: Bowel Sounds Present, Soft, Non Tender Extremities: No edema, Capillary Refill Less than 3 Seconds Skin: No rashes, No breakdown Musculoskeletal: No Tenderness to Palpation of Joints or Extremities Neurological: Cranial nerves II-XII grossly intact Psych/Mental Status: Normal Affect, Appropriate Current Medications Aspirin (Aspirin, Baby) 81 mg PO DAILY@0800 [facility] Last Admin: 01/20/18 09:39 Dose: 81 mg Cholecalciferol (Vitamin D) 1,000 unit PO DAILY [facility] Last Admin: 01/20/18 09:39 Dose: 1,000 unit Diltiazem HCl (Cardizem Cd) 240 mg PO DAILY [facility] Last Admin: 01/20/18 09:39 Dose: 240 mg Enoxaparin Sodium (Lovenox) 40 mg SC DAILY@1000 [facility] Last Admin: 01/20/18 09:40 Dose: 40 mg Haloperidol (Haldol) 2 mg PO QHS [facility] Last Admin: 01/19/18 21:08 Dose: 2 mg Haloperidol (Haldol) 1 mg PO DAILY [facility] Last Admin: 01/20/18 09:39 Dose: 1 mg Ceftriaxone Sodium (Rocephin) 1 gm in 50 mls @ 100 mls/hr IV Q24 [facility] Last Admin: 01/20/18 09:40 Dose: 100 mls/hr Magnesium Hydroxide (Milk Of Magnesia) 30 ml PO DAILY PRN PRN PRN Reason: Constipation Multivitamins/Minerals (Ocuvite) 1 tablet PO BIDCM [facility] Last Admin: 01/20/18 09:39 Dose: 1 tablet Nystatin (Mycostatin Powder) 1 applic TOPICAL BID IAN PRN Reason: Protocol Last Admin: 01/20/18 09:40 Dose: 1 applicatio Vbbjm-6-Soiu Ethyl Esters (Lovaza) 1 gm PO BID [facility] Last Admin: 01/20/18 09:39 Dose: 1 gm Pantoprazole Sodium (Protonix) 40 mg PO DAILY [facility] Last Admin: 01/20/18 09:39 Dose: 40 mg Sodium Chloride () 5 - 30 ml IV UD PRN PRN Reason: SALINE FLUSH Last Admin: 01/20/18 09:42 Dose: 10 ml Medical Necessity - Tobacco Use Smoking Status: Former smoker Assessment/Plan This is a 82-year-old female with history of advanced dementia was admitted for altered mental status. She has been found wandering around the neighborhood and disorganized behavior. She found to have UTI. 1. Acute encephalopathy; this is precipitated by urinary tract infection, she has improved to baseline after antibiotic therapy. 2. Acute cystitis due to Morganella morganii; urine culture reported as Morganella morganii sensitive to Rocephin. Will change to Cipro at the time of discharge. 3. Dementia with behavioral disturbance; we will continue her antipsychotic medications without change. 4. generalized weakness; we will obtain TSH, physical and Occupational Therapy. 5. Disposition; discharge planning to [facility]. Pending precertification from insurance 6. DVT Prophylaxis with Lovenox. Code Visit Inpatient E&M: 43856 Subs Hosp L2
--- NOTE | 2018-01-20 12:50 | PN_ITS ---
Subjective: Seen and examined. Patient is very hard of hearing and patient has slowly progressive dementia. Talk to the patient's son and daughter and they gave good history of progressive worsening dementia with forgetfulness of common bath, neighborhood and names. Vitals/I&O's: Vital Signs Temp Pulse Resp BP Pulse Ox 97.5 F L 63 18 137/53 H 96 01/20/18 09:35 01/20/18 09:35 01/20/18 09:35 01/20/18 09:35 01/20/18 09:35 Oxygen Flow Rate (L/min) 2 Oxygen Delivery Method Room Air Weight: 141 lb 1.533 oz Body Mass Index (BMI) 22.9 Intake and Output for Last 24 Hours 01/18/18 01/19/18 01/20/18 23:59 23:59 23:59 Intake Total 100 / 100 950 / 950 800 / 800 Output Total 300 / 300 600 / 600 Balance 100 / 100 650 / 650 200 / 200 General: Alert, Oriented x3, Cooperative HEENT: Atraumatic, PERRLA, EOMI, Normocephalic Neck: Supple, No JVD, Negative Carotid Bruits Lungs: Clear to auscultation, Normal air movement, No rhonchi, No wheeze, No rales Cardiovascular: Regular rate, Regular Rhythm, Normal S1, Normal S2, No murmurs Abdomen: Bowel Sounds Present, Soft, Non Tender Extremities: No edema, Capillary Refill Less than 3 Seconds Skin: No rashes, No breakdown Musculoskeletal: No Tenderness to Palpation of Joints or Extremities Neurological: Cranial nerves II-XII grossly intact Psych/Mental Status: Normal Affect, Appropriate Current Medications Aspirin (Aspirin, Baby) 81 mg PO DAILY@0800 [facility] Last Admin: 01/20/18 09:39 Dose: 81 mg Cholecalciferol (Vitamin D) 1,000 unit PO DAILY [facility] Last Admin: 01/20/18 09:39 Dose: 1,000 unit Diltiazem HCl (Cardizem Cd) 240 mg PO DAILY [facility] Last Admin: 01/20/18 09:39 Dose: 240 mg Enoxaparin Sodium (Lovenox) 40 mg SC DAILY@1000 [facility] Last Admin: 01/20/18 09:40 Dose: 40 mg Haloperidol (Haldol) 2 mg PO QHS [facility] Last Admin: 01/19/18 21:08 Dose: 2 mg Haloperidol (Haldol) 1 mg PO DAILY [facility] Last Admin: 01/20/18 09:39 Dose: 1 mg Ceftriaxone Sodium (Rocephin) 1 gm in 50 mls @ 100 mls/hr IV Q24 [facility] Last Admin: 01/20/18 09:40 Dose: 100 mls/hr Magnesium Hydroxide (Milk Of Magnesia) 30 ml PO DAILY PRN PRN PRN Reason: Constipation Multivitamins/Minerals (Ocuvite) 1 tablet PO BIDCM [facility] Last Admin: 01/20/18 09:39 Dose: 1 tablet Nystatin (Mycostatin Powder) 1 applic TOPICAL BID IAN PRN Reason: Protocol Last Admin: 01/20/18 09:40 Dose: 1 applicatio Meeiu-4-Dviv Ethyl Esters (Lovaza) 1 gm PO BID [facility] Last Admin: 01/20/18 09:39 Dose: 1 gm Pantoprazole Sodium (Protonix) 40 mg PO DAILY [facility] Last Admin: 01/20/18 09:39 Dose: 40 mg Sodium Chloride () 5 - 30 ml IV UD PRN PRN Reason: SALINE FLUSH Last Admin: 01/20/18 09:42 Dose: 10 ml Medical Necessity - Tobacco Use Smoking Status: Former smoker Assessment/Plan This is a 82-year-old female with history of advanced dementia was admitted for altered mental status. She has been found wandering around the neighborhood and disorganized behavior. She found to have UTI. 1. Acute encephalopathy; this is precipitated by urinary tract infection, she has improved to baseline after antibiotic therapy. 2. Acute cystitis due to Morganella morganii; urine culture reported as Morganella morganii sensitive to Rocephin. Will change to Cipro at the time of discharge. 3. Dementia with behavioral disturbance; we will continue her antipsychotic medications without change. 4. generalized weakness; we will obtain TSH, physical and Occupational Therapy. 5. Disposition; discharge planning to [facility]. Pending precertification from insurance 6. DVT Prophylaxis with Lovenox. Code Visit Inpatient E&M: 02957 Subs Hosp L2
--- NOTE | 2018-01-20 14:55 | CASEMGMT ---
Social Work Note Call from pt's step-son, Rodriguez, stating that he did not place the pt's social security number on the application. Placed call to Anna Piedra and informed that the pt would be going to [facility] at discharge and provided with SSN. Placed call to Rodriguez and left a vm updating that SW received his vm and provided JFS with the correct information. Plan: [facility] pending pre-cert. Stefanie Alston, REFERRAL SPECIALIST, REFRIGERATION INSTALLER
[2018-01-20 15:00] VITALS: BP 117/47; PULSE 58; RESP 16; TEMP 36.5; O2SAT 95
[2018-01-20 21:02] VITALS: BP 138/72; PULSE 70; RESP 16; TEMP 36.6; O2SAT 93
[2018-01-20] MEDS: Haloperidol 1 MG Tablet 2 MG PO (21:14)
[2018-01-21 03:16] VITALS: BP 135/64; PULSE 60; RESP 16; TEMP 36.4; O2SAT 94
[2018-01-21 07:56] VITALS: BP 135/65; PULSE 58; RESP 14; TEMP 36.7; O2SAT 93
--- NOTE | 2018-01-21 09:11 | CASEMGMT ---
Social Work Note SW faxed updated clinicals to [facility]. SW will continue to follow. Plan: Discharge to [facility] pending pre-cert. Marisela Quiñones MSW, MOBILE SOLUTIONS ARCHITECT.
[2018-01-21] MEDS: Pantoprazole Sodium 40 MG Tablet PO (09:49)
[2018-01-21] MEDS: dilTIAZem CD 240 MG Capsule PO (09:49)
[2018-01-21] MEDS: Haloperidol 1 MG Tablet PO (09:49)
[2018-01-21] MEDS: Omega-3 Acid Ethyl Esters 1 GM Capsule PO ×2 (09:49→22:06)
[2018-01-21] MEDS: Nystatin Powder 15gm Bottle 1 APPLIC TOPICAL ×2 (09:49→22:06)
[2018-01-21] MEDS: Enoxaparin 40 MG/0.4 ML Syringe SC (09:49)
[2018-01-21] MEDS: Aspirin 81 MG TAB.CHEW PO (09:49)
[2018-01-21] MEDS: Ciprofloxacin 250 MG Tablet PO ×2 (11:30→22:06)
--- NOTE | 2018-01-21 11:48 | PCM.PN.HOSP ---
Subjective: Patient has physical decline and decreased functional capacity with hard of hearing. Burning with micturition. Urine culture shows Morganella morganii and on oral Cipro. Vitals/I&O's: Vital Signs Temp Pulse Resp BP Pulse Ox 98.1 F 58 L 14 135/65 H 93 01/21/18 07:56 01/21/18 07:56 01/21/18 07:56 01/21/18 07:56 01/21/18 07:56 Oxygen Flow Rate (L/min) 2 Oxygen Delivery Method Room Air Weight: 141 lb 1.533 oz Body Mass Index (BMI) 22.9 Intake and Output for Last 24 Hours 01/19/18 01/20/18 01/21/18 23:59 23:59 23:59 Intake Total 950 / 950 1983 / 1983 500 / 500 Output Total 300 / 300 600 / 600 900 / 900 Balance 650 / 650 1384 / 1384 -400 / -400 General: Alert, Oriented x3, Cooperative HEENT: Atraumatic, PERRLA, EOMI, Normocephalic Neck: Supple, No JVD, Negative Carotid Bruits Lungs: Clear to auscultation, Normal air movement Cardiovascular: Regular rate, Normal S1, Normal S2, No murmurs Abdomen: Bowel Sounds Present, Soft, Non Tender, Non-Distended Extremities: No edema, Capillary Refill Less than 3 Seconds Skin: No rashes, No breakdown Musculoskeletal: No Tenderness to Palpation of Joints or Extremities, Arthritic Changes, Muscle Wasting Neurological: Cranial nerves II-XII grossly intact Psych/Mental Status: Normal Affect, Appropriate Current Medications Aspirin (Aspirin, Baby) 81 mg PO DAILY@0800 [facility] Last Admin: 01/21/18 09:49 Dose: 81 mg Cholecalciferol (Vitamin D) 1,000 unit PO DAILY [facility] Last Admin: 01/21/18 09:49 Dose: 1,000 unit Ciprofloxacin HCl (Cipro) 250 mg PO BID [facility] Last Admin: 01/21/18 11:30 Dose: 250 mg Diltiazem HCl (Cardizem Cd) 240 mg PO DAILY [facility] Last Admin: 01/21/18 09:49 Dose: 240 mg Enoxaparin Sodium (Lovenox) 40 mg SC DAILY@1000 [facility] Last Admin: 01/21/18 09:49 Dose: 40 mg Haloperidol (Haldol) 2 mg PO QHS [facility] Last Admin: 01/20/18 21:14 Dose: 2 mg Haloperidol (Haldol) 1 mg PO DAILY [facility] Last Admin: 01/21/18 09:49 Dose: 1 mg Magnesium Hydroxide (Milk Of Magnesia) 30 ml PO DAILY PRN PRN PRN Reason: Constipation Multivitamins/Minerals ([facility]uvite) [facility] Last Admin: 01/21/18 09:49 Dose: 1 tablet Nystatin (Mycostatin Powder) 1 applic TOPICAL BID IAN PRN Reason: Protocol Last Admin: 01/21/18 09:49 Dose: 1 applicatio [id number]-[id number] Ethyl Esters (Lovaza) 1 gm PO BID [facility] Last Admin: 01/21/18 09:49 Dose: 1 gm Pantoprazole Sodium (Protonix) 40 mg PO DAILY [facility] Last Admin: 01/21/18 09:49 Dose: 40 mg Sodium Chloride () 5 - 30 ml IV UD PRN PRN Reason: SALINE FLUSH Last Admin: 01/20/18 09:42 Dose: 10 ml Medical Necessity - Tobacco Use Smoking Status: Former smoker Assessment/Plan This is a 82-year-old female with history of advanced dementia was admitted for altered mental status. She has been found wandering around the neighborhood and disorganized behavior. She found to have UTI. 1. Acute encephalopathy; this is precipitated by urinary tract infection, she has improved to baseline after antibiotic therapy. 2. Acute cystitis due to Morganella morganii; urine culture reported as Morganella morganii sensitive to Rocephin and Cipro. Changed to oral Cipro. 3. Dementia with behavioral disturbance; continue her antipsychotic medications without change. 4. generalized weakness; we will obtain TSH, physical and Occupational Therapy. 5. Disposition; discharge planning to [facility]. Pending precertification from insurance 6. DVT Prophylaxis with Lovenox. Code Visit Inpatient E&M: 98694 Subs Hosp L2
--- NOTE | 2018-01-21 11:52 | PN_ITS ---
Subjective: Patient has physical decline and decreased functional capacity with hard of hearing. Burning with micturition. Urine culture shows Morganella morganii and on oral Cipro. Vitals/I&O's: Vital Signs Temp Pulse Resp BP Pulse Ox 98.1 F 58 L 14 135/65 H 93 01/21/18 07:56 01/21/18 07:56 01/21/18 07:56 01/21/18 07:56 01/21/18 07:56 Oxygen Flow Rate (L/min) 2 Oxygen Delivery Method Room Air Weight: 141 lb 1.533 oz Body Mass Index (BMI) 22.9 Intake and Output for Last 24 Hours 01/19/18 01/20/18 01/21/18 23:59 23:59 23:59 Intake Total 950 / 950 1983 / 1983 500 / 500 Output Total 300 / 300 600 / 600 900 / 900 Balance 650 / 650 1384 / 1384 -400 / -400 General: Alert, Oriented x3, Cooperative HEENT: Atraumatic, PERRLA, EOMI, Normocephalic Neck: Supple, No JVD, Negative Carotid Bruits Lungs: Clear to auscultation, Normal air movement Cardiovascular: Regular rate, Normal S1, Normal S2, No murmurs Abdomen: Bowel Sounds Present, Soft, Non Tender, Non-Distended Extremities: No edema, Capillary Refill Less than 3 Seconds Skin: No rashes, No breakdown Musculoskeletal: No Tenderness to Palpation of Joints or Extremities, Arthritic Changes, Muscle Wasting Neurological: Cranial nerves II-XII grossly intact Psych/Mental Status: Normal Affect, Appropriate Current Medications Aspirin (Aspirin, Baby) 81 mg PO DAILY@0800 [facility] Last Admin: 01/21/18 09:49 Dose: 81 mg Cholecalciferol (Vitamin D) 1,000 unit PO DAILY [facility] Last Admin: 01/21/18 09:49 Dose: 1,000 unit Ciprofloxacin HCl (Cipro) 250 mg PO BID [facility] Last Admin: 01/21/18 11:30 Dose: 250 mg Diltiazem HCl (Cardizem Cd) 240 mg PO DAILY [facility] Last Admin: 01/21/18 09:49 Dose: 240 mg Enoxaparin Sodium (Lovenox) 40 mg SC DAILY@1000 [facility] Last Admin: 01/21/18 09:49 Dose: 40 mg Haloperidol (Haldol) 2 mg PO QHS [facility] Last Admin: 01/20/18 21:14 Dose: 2 mg Haloperidol (Haldol) 1 mg PO DAILY [facility] Last Admin: 01/21/18 09:49 Dose: 1 mg Magnesium Hydroxide (Milk Of Magnesia) 30 ml PO DAILY PRN PRN PRN Reason: Constipation [facility]it[facility] Last Admin: 01/21/18 09:49 Dose: 1 tablet Nystatin (Mycostatin Powder) 1 applic TOPICAL BID IAN PRN Reason: Protocol Last Admin: 01/21/18 09:49 Dose: 1 applicatio [id number]-[id number] Ethyl Esters (Lovaza) 1 gm PO BID [facility] Last Admin: 01/21/18 09:49 Dose: 1 gm Pantoprazole Sodium (Protonix) 40 mg PO DAILY [facility] Last Admin: 01/21/18 09:49 Dose: 40 mg Sodium Chloride () 5 - 30 ml IV UD PRN PRN Reason: SALINE FLUSH Last Admin: 01/20/18 09:42 Dose: 10 ml Medical Necessity - Tobacco Use Smoking Status: Former smoker Assessment/Plan This is a 82-year-old female with history of advanced dementia was admitted for altered mental status. She has been found wandering around the neighborhood and disorganized behavior. She found to have UTI. 1. Acute encephalopathy; this is precipitated by urinary tract infection, she has improved to baseline after antibiotic therapy. 2. Acute cystitis due to Morganella morganii; urine culture reported as Morganella morganii sensitive to Rocephin and Cipro. Changed to oral Cipro. 3. Dementia with behavioral disturbance; continue her antipsychotic medications without change. 4. generalized weakness; we will obtain TSH, physical and Occupational Therapy. 5. Disposition; discharge planning to [facility]. Pending precertification from insurance 6. DVT Prophylaxis with Lovenox. Code Visit Inpatient E&M: 04111 Subs Hosp L2
[2018-01-21 14:00] VITALS: BP 122/59; PULSE 63; RESP 12; TEMP 36.6; O2SAT 94
[2018-01-21 20:00] VITALS: BP 147/55; PULSE 64; RESP 16; TEMP 36.4; O2SAT 96
[2018-01-21] MEDS: Haloperidol 1 MG Tablet 2 MG PO (22:06)
[2018-01-22 03:00] VITALS: BP 138/55; PULSE 62; RESP 16; TEMP 36.3; O2SAT 94
[2018-01-22 09:00] VITALS: BP 132/50; PULSE 93; RESP 18; TEMP 36.6; O2SAT 93
[2018-01-22] MEDS: Aspirin 81 MG TAB.CHEW PO (10:07)
[2018-01-22] MEDS: Omega-3 Acid Ethyl Esters 1 GM Capsule PO ×2 (10:07→21:26)
[2018-01-22] MEDS: Ciprofloxacin 250 MG Tablet PO (10:07)
[2018-01-22] MEDS: Enoxaparin 40 MG/0.4 ML Syringe SC (10:08)
[2018-01-22] MEDS: dilTIAZem CD 240 MG Capsule PO (10:08)
[2018-01-22] MEDS: Nystatin Powder 15gm Bottle 1 APPLIC TOPICAL ×2 (10:08→21:26)
[2018-01-22] MEDS: Haloperidol 1 MG Tablet PO (10:08)
[2018-01-22] MEDS: Pantoprazole Sodium 40 MG Tablet PO (10:09)
--- NOTE | 2018-01-22 13:32 | CASEMGMT ---
Social Work Note Updated clinicals faxed to [facility]. SW still awaiting pre-cert. Digital Sales Director will continue to follow. Plan: Discharge to [facility] pending pre-cert. Marisela BLANC, GRAIN SHIPPER.
--- NOTE | 2018-01-22 14:26 | CASEMGMT ---
Social Work Note Received call from Yaya Cardenas, patient's case is going to MD review. [employer] will wait to hear back from [facility] regarding MD review. Plan: [facility] pending MD review. Marisela Quiñones MSW, ADMISSION NURSE COORDINATOR.
[2018-01-22 14:58] VITALS: BP 137/69; PULSE 73; RESP 18; TEMP 36.6; O2SAT 93
--- NOTE | 2018-01-22 15:24 | PCM.PN.HOSP ---
Subjective: Patient is still gets disoriented, impulsive sometimes with restlessness. Patient completed about 5 days of antibiotics for UTI. Antibiotic discontinued. Vitals/I&O's: Vital Signs Temp Pulse Resp BP Pulse Ox 97.9 F 73 18 137/69 H 93 01/22/18 14:58 01/22/18 14:58 01/22/18 14:58 01/22/18 14:58 01/22/18 14:58 Oxygen Flow Rate (L/min) 2 Oxygen Delivery Method Room Air Weight: 141 lb 1.533 oz Body Mass Index (BMI) 22.9 Intake and Output for Last 24 Hours 01/20/18 01/21/18 01/22/18 23:59 23:59 23:59 Intake Total 1983 / 1983 1450 / 1450 1177 / 1177 Output Total 600 / 600 900 / 900 Balance 1384 / 1384 550 / 550 1177 / 1177 General: Cooperative, Confused, Disoriented HEENT: Atraumatic, PERRLA, EOMI, Normocephalic Neck: Supple, No JVD, Negative Carotid Bruits Lungs: Clear to auscultation, Normal air movement, No rhonchi, No wheeze, No rales Cardiovascular: Regular rate, Regular Rhythm, Normal S1, Normal S2, No murmurs Abdomen: Bowel Sounds Present, Soft, Non Tender Extremities: No edema, Capillary Refill Less than 3 Seconds Skin: No rashes, No breakdown Musculoskeletal: No Tenderness to Palpation of Joints or Extremities, Arthritic Changes Neurological: Cranial nerves II-XII grossly intact Psych/Mental Status: Normal Affect, Appropriate Current Medications Aspirin (Aspirin, Baby) 81 mg PO DAILY@0800 [facility] Last Admin: 01/22/18 10:07 Dose: 81 mg Cholecalciferol (Vitamin D) 1,000 unit PO DAILY [facility] Last Admin: 01/22/18 10:09 Dose: 1,000 unit Ciprofloxacin HCl (Cipro) 250 mg PO BID [facility] Last Admin: 01/22/18 10:07 Dose: 250 mg Diltiazem HCl (Cardizem Cd) 240 mg PO DAILY [facility] Last Admin: 01/22/18 10:08 Dose: 240 mg Enoxaparin Sodium (Lovenox) 40 mg SC DAILY@1000 [facility] Last Admin: 01/22/18 10:08 Dose: 40 mg Haloperidol (Haldol) 2 mg PO QHS [facility] Last Admin: 01/21/18 22:06 Dose: 2 mg Haloperidol (Haldol) 1 mg PO DAILY [facility] Last Admin: 01/22/18 10:08 Dose: 1 mg Magnesium Hydroxide (Milk Of Magnesia) 30 ml PO DAILY PRN PRN PRN Reason: Constipation [facility]ivitamins[facility]) [facility] Last Admin: 01/22/18 10:12 Dose: Not Given Nystatin (Mycostatin Powder) 1 applic TOPICAL BID IAN PRN Reason: Protocol Last Admin: 01/22/18 10:08 Dose: 1 applicatio [id number]-[id number] Ethyl Esters (Lovaza) 1 gm PO BID [facility] Last Admin: 01/22/18 10:07 Dose: 1 gm Pantoprazole Sodium (Protonix) 40 mg PO DAILY [facility] Last Admin: 01/22/18 10:09 Dose: 40 mg Sodium Chloride () 5 - 30 ml IV UD PRN PRN Reason: SALINE FLUSH Last Admin: 01/20/18 09:42 Dose: 10 ml Medical Necessity - Tobacco Use Smoking Status: Former smoker Assessment/Plan This is a 82-year-old female with history of advanced dementia was admitted for altered mental status. She has been found wandering around the neighborhood and disorganized behavior. She found to have UTI. 1. Acute encephalopathy; this is precipitated by urinary tract infection, she has improved to baseline after antibiotic therapy. 2. Acute cystitis due to Morganella morganii; urine culture reported as Morganella morganii sensitive to Rocephin and Cipro. Completed 5 days of antibiotics. DC Cipro 3. Dementia with behavioral disturbance; continue her antipsychotic medications without change. Needs extended care facility, preferably [facility] as she cannot take care of herself and has limited activities of daily living. 4. generalized weakness; we will obtain TSH, physical and Occupational Therapy. 5. Disposition; discharge planning to [facility]. Pending precertification from insurance 6. DVT Prophylaxis with Lovenox. Code Visit Inpatient E&M: 32455 Subs Hosp L2
--- NOTE | 2018-01-22 15:27 | PN_ITS ---
Subjective: Patient is still gets disoriented, impulsive sometimes with restlessness. Patient completed about 5 days of antibiotics for UTI. Antibiotic discontinued. Vitals/I&O's: Vital Signs Temp Pulse Resp BP Pulse Ox 97.9 F 73 18 137/69 H 93 01/22/18 14:58 01/22/18 14:58 01/22/18 14:58 01/22/18 14:58 01/22/18 14:58 Oxygen Flow Rate (L/min) 2 Oxygen Delivery Method Room Air Weight: 141 lb 1.533 oz Body Mass Index (BMI) 22.9 Intake and Output for Last 24 Hours 01/20/18 01/21/18 01/22/18 23:59 23:59 23:59 Intake Total 1983 / 1983 1450 / 1450 1177 / 1177 Output Total 600 / 600 900 / 900 Balance 1384 / 1384 550 / 550 1177 / 1177 General: Cooperative, Confused, Disoriented HEENT: Atraumatic, PERRLA, EOMI, Normocephalic Neck: Supple, No JVD, Negative Carotid Bruits Lungs: Clear to auscultation, Normal air movement, No rhonchi, No wheeze, No rales Cardiovascular: Regular rate, Regular Rhythm, Normal S1, Normal S2, No murmurs Abdomen: Bowel Sounds Present, Soft, Non Tender Extremities: No edema, Capillary Refill Less than 3 Seconds Skin: No rashes, No breakdown Musculoskeletal: No Tenderness to Palpation of Joints or Extremities, Arthritic Changes Neurological: Cranial nerves II-XII grossly intact Psych/Mental Status: Normal Affect, Appropriate Current Medications Aspirin (Aspirin, Baby) 81 mg PO DAILY@0800 [facility] Last Admin: 01/22/18 10:07 Dose: 81 mg Cholecalciferol (Vitamin D) 1,000 unit PO DAILY [facility] Last Admin: 01/22/18 10:09 Dose: 1,000 unit Ciprofloxacin HCl (Cipro) 250 mg PO BID [facility] Last Admin: 01/22/18 10:07 Dose: 250 mg Diltiazem HCl (Cardizem Cd) 240 mg PO DAILY [facility] Last Admin: 01/22/18 10:08 Dose: 240 mg Enoxaparin Sodium (Lovenox) 40 mg SC DAILY@1000 [facility] Last Admin: 01/22/18 10:08 Dose: 40 mg Haloperidol (Haldol) 2 mg PO QHS [facility] Last Admin: 01/21/18 22:06 Dose: 2 mg Haloperidol (Haldol) 1 mg PO DAILY [facility] Last Admin: 01/22/18 10:08 Dose: 1 mg Magnesium Hydroxide (Milk Of Magnesia) 30 ml PO DAILY PRN PRN PRN Reason: Constipation [facility]ivit[facility]/M[facility] ([facility]) [facility] Last Admin: 01/22/18 10:12 Dose: Not Given Nystatin (Mycostatin Powder) 1 applic TOPICAL BID IAN PRN Reason: Protocol Last Admin: 01/22/18 10:08 Dose: 1 applicatio Srduc-6-Zhtl Ethyl Esters (Lovaza) 1 gm PO BID [facility] Last Admin: 01/22/18 10:07 Dose: 1 gm Pantoprazole Sodium (Protonix) 40 mg PO DAILY [facility] Last Admin: 01/22/18 10:09 Dose: 40 mg Sodium Chloride () 5 - 30 ml IV UD PRN PRN Reason: SALINE FLUSH Last Admin: 01/20/18 09:42 Dose: 10 ml Medical Necessity - Tobacco Use Smoking Status: Former smoker Assessment/Plan This is a 82-year-old female with history of advanced dementia was admitted for altered mental status. She has been found wandering around the neighborhood and disorganized behavior. She found to have UTI. 1. Acute encephalopathy; this is precipitated by urinary tract infection, she has improved to baseline after antibiotic therapy. 2. Acute cystitis due to Morganella morganii; urine culture reported as Morganella morganii sensitive to Rocephin and Cipro. Completed 5 days of antibiotics. DC Cipro 3. Dementia with behavioral disturbance; continue her antipsychotic medications without change. Needs extended care facility, preferably [facility] as she cannot take care of herself and has limited activities of daily living. 4. generalized weakness; we will obtain TSH, physical and Occupational Therapy. 5. Disposition; discharge planning to [facility]. Pending precertification from insurance 6. DVT Prophylaxis with Lovenox. Code Visit Inpatient E&M: 46338 Subs Hosp L2
--- NOTE | 2018-01-22 16:21 | CASEMGMT ---
Social Work Note Call from [facility] stating that insurance denied as pt is more appropriate for long-term care than skilled. Confirmed that they would accept the pt under pending Medicaid. Anna Piedra confirms that the pt has a pending Medicaid number [id number]. Submitted LOC to [facility] and anticipate approval for placement under pending Medicaid tomorrow, 01/23. SW to continue to follow and assist with discharge planning. Plan: [facility] pending LOC. Stefanie Alston, METAL FRAMER, SCRAP BALER
[2018-01-22] MEDS: Haloperidol 1 MG Tablet 2 MG PO (21:26)
[2018-01-22 22:00] VITALS: BP 123/61; PULSE 72; RESP 18; TEMP 36.9; O2SAT 93
[2018-01-23 03:09] VITALS: BP 134/62; PULSE 62; RESP 20; TEMP 36.4; O2SAT 95
[2018-01-23] MEDS: Aspirin 81 MG TAB.CHEW PO (08:46)
[2018-01-23 08:48] VITALS: BP 128/55; PULSE 79; RESP 18; TEMP 36.4; O2SAT 93
[2018-01-23] MEDS: dilTIAZem CD 240 MG Capsule PO (10:36)
[2018-01-23] MEDS: Omega-3 Acid Ethyl Esters 1 GM Capsule PO (10:37)
[2018-01-23] MEDS: Pantoprazole Sodium 40 MG Tablet PO (10:37)
[2018-01-23] MEDS: Haloperidol 1 MG Tablet PO (10:39)
[2018-01-23] MEDS: Enoxaparin 40 MG/0.4 ML Syringe SC (10:40)
[2018-01-23] MEDS: Nystatin Powder 15gm Bottle 1 APPLIC TOPICAL (10:40)
--- NOTE | 2018-01-23 14:57 | CASEMGMT ---
Social Work Note SW received Level of Care from [facility]. SW faxed Level of Care, Medication List, and transfer to extended care to [facility]. Orignals faxed to facility and copies put on chart. Per, patient's family they are requesting that transportation be set up. MADISON set up transportation via [facility] for 17:50pm. MADISON called pt's daughter Peggy and spoke with Elis at [facility] to inform them of transportation time. PASRR completed yesterday for Level of Care. Plan: Discharge to [facility] Marisela Quiñones RUNSTITCHING MACHINE OPERATOR, GRAVURE PRESS SET UP OPERATOR
--- NOTE | 2018-01-23 15:04 | PCM.TXEXTCAR ---
- Diet 01/16/18 21:53 Diet: Regular Diet Food consistency:: Regular Liquid Consistency:: Regular/Thin Is pt able to select menu?: No - Routine Orders/Code Status Suppository Type: Dulcolax 10mg Suppository Frequency: Daily PRN Routine Lab Work: BMP - On 01/28/2018 - Therapies Weight Bearing: Weight bearing as tolerated Physical Therapy: Eval and Treat Occupational Therapy: Eval and Treat - Allergies/Procedures Done in Hospital Allergies/Adverse Reactions: Allergies No Known Allergies Allergy (Verified 01/16/18 14:25) - Type of Care/Length of Stay Estimated LOS: Convalescent Care Less Than 30 days Type of Care Needed: Skilled Rehab Potential: Fair Prognosis: Fair - Additional Orders/Day of Discharge Day of Discharge: 01/22/18 - Dietary and Speech Recommendations Dietitian Recommendations/Changes: No added salt diet as needed. - Follow Up Care Primary Care Physician: Gila Potter DO [Primary Care Provider] - Please follow up with your Primary Care Physician in: in 2 weeks
--- NOTE | 2018-01-23 15:04 | PCM.DC.SUM ---
Discharge Date and Diagnosis Date of Admission: 01/16/18 Date of Discharge: 01/23/18 - Primary Discharge Diagnosis 1. Acute encephalopathy; probably due to UTI on baseline dementia: 2. Acute cystitis due to Morganella morganii; urine culture reported as Morganella morganii sensitive to Rocephin and Cipro. Completed 5 days of antibiotics. Dementia, exact type and etiology unclear - Secondary Discharge Diagnosis Chronic Problems (Last Updated 01/16/18 @ 22:19 by Mitch Booth) HTN (hypertension) (Chronic) Hearing deficit (Chronic) Obesity (BMI 30.0-34.9) (Chronic) COPD (chronic obstructive pulmonary disease) (Chronic) Tobacco use (Chronic) Quit 15 years prior. Congenital syphilis (Chronic) Hospital Course and Treatment Operations: None Summary of Care Provided: [] This is a 82-year-old female with history of advanced dementia was admitted for altered mental status. She has been found wandering around the neighborhood and disorganized behavior. She found to have UTI. General: Cooperative, Disoriented HEENT: Atraumatic, PERRLA, EOMI, Normocephalic Neck: Supple, No JVD, Negative Carotid Bruits Lungs: Clear to auscultation, Normal air movement, No rhonchi, No wheeze, No rales Cardiovascular: Regular rate, Regular Rhythm, Normal S1, Normal S2, No murmurs Abdomen: Bowel Sounds Present, Soft, Non Tender Extremities: No edema, Capillary Refill Less than 3 Seconds Skin: No rashes, No breakdown Musculoskeletal: No Tenderness to Palpation of Joints or Extremities, Arthritic Changes Neurological: Cranial nerves II-XII grossly intact Psych/Mental Status: Normal Affect, Appropriate 1. Acute encephalopathy; probably due to UTI on baseline dementia: This is precipitated by urinary tract infection, she has improved to baseline after antibiotic therapy. 2. Acute cystitis due to Morganella morganii; urine culture reported as Morganella morganii sensitive to Rocephin and Cipro. Completed 5 days of antibiotics. DC Cipro 3. Dementia with behavioral disturbance; continue her antipsychotic medications without change. Needs extended care facility, preferably [facility] unit as she cannot take care of herself and has limited activities of daily living. 4. generalized weakness; we will obtain TSH, physical and Occupational Therapy. Discharge medication reconciliation done. Discharge follow-up instructions and medications discussed with the patient's daughter; present in the room. Patient is being transferred to SNF. Total time spent, exact 32 minutes on discharge meds reconciliation, examination, review of imaging and blood test and discussion with the patient on follow-up instructions. Home Medications: Medications to take at Discharge Diltiazem CD [Cardizem CD] 240 mg PO DAILY 01/11/16 Haloperidol [Haldol] 1 mg PO DAILY 01/11/16 Haloperidol [Haldol] 2 mg PO QHS 01/11/16 Vit C/E/Zn/Coppr/Lutein/Zeaxan [Preservision Areds 2 Softgel] 1 each PO BID 01/11/16 Aspirin [Aspirin, Baby] 81 mg PO DAILY@0800 01/16/18 Cholecalciferol (Vitamin D3) [Vitamin D3] 1,000 unit PO DAILY 01/16/18 [place]-3S/Dha/Epa/Fish Oil [Fish Oil 1,200 mg Softgel] 1 each PO BID 01/16/18 Omeprazole [Prilosec] 20 mg PO QHS 01/18/18 Nystatin Powder [Mycostatin Powder] 1 applic TOPICAL BID 7 Days bottle 01/22/18 Primary Care Physician: Gila Potter DO [Primary Care Provider] - Please follow up with your Primary Care Physician in: in 2 weeks Medical Necessity - Tobacco Use Smoking Status: Former smoker Meaningful Use Info Meaningful Use Diagnoses (Choose all that apply): None applicable Code Visit Inpatient E&M: 77457 Disch Hosp
[2018-01-23 15:20] VITALS: BP 128/65; PULSE 71; RESP 16; TEMP 36.7; O2SAT 94
--- NOTE | 2018-01-23 16:09 | NURSING ---
GAVE REPORT TO GEORGINA AT [facility]-
== END 2018-01-23 18:00 | disposition skilled nursing facility (03) ==
LOC: ED 16:24 → MS3 18:51
PROVIDERS: Admitting Provider Internal Medicine; Emergency Provider Emergency Medicine; Family Provider Internal Medicine; PCP Internal Medicine; Visit Provider Internal Medicine
DX: G93.40 Encephalopathy, unspecified (principal); N30.00 Acute cystitis without hematuria; B96.89 Other specified bacterial agents as the cause of diseases classified elsewhere; J44.9 Chronic obstructive pulmonary disease, unspecified; I10 Essential (primary) hypertension; A50.9 Congenital syphilis, unspecified; F03.91 Unspecified dementia, unspecified severity, with behavioral disturbance; R53.1 Weakness; Z87.891 Personal history of nicotine dependence; H91.90 Unspecified hearing loss, unspecified ear
CPT/HCPCS: 70450; 70551; 71045; 80048; 81001; 84484; 85025; 85027; 87077; 87086; 87088; 87186; 93005; 96365; 96366; 97110; 97116; 97162; 97166; 97530; 97802; 99218; 99284; J7050; P9612; Q9967; A4216; G0378; G8978; G8979; G8987; G8988

== ENCOUNTER 2019-01-10 12:01 | Emergency (ER) | payer MEDICARE, SELFPAY ==
[2019-01-10 12:04] VITALS: BP 140/77; PULSE 83; RESP 16; TEMP 36.7; O2SAT 93; BMI 28.1
[2019-01-10 12:12] VITALS: BP 140/77; PULSE 83; RESP 16; TEMP 36.6; O2SAT 94
--- NOTE | 2019-01-10 12:19 | EKG12_ITS ---
Test Reason : DEPRESSION Blood Pressure : / mmHG Vent. Rate : 076 BPM Atrial Rate : 076 BPM P-R Int : 160 ms QRS Dur : 080 ms QT Int : 432 ms P-R-T Axes : 037 046 076 degrees QTc Int : 486 ms Normal sinus rhythm Normal ECG Confirmed by DULCE TABOR MD ([id number]), science editor MANAS FIGUEREDO ([id number] on 01/11/2019 4:06:41 PM Referred By: Confirmed By:DULCE TABOR MD
--- NOTE | 2019-01-10 12:19 | CT_ITS ---
STUDY: CT BRAIN WITHOUT CONTRAST REASON FOR EXAM: Female, 83 years old. Change of mental status, UTI RADIATION DOSAGE (If Supplied By Facility): CTDIvol = ( 44.99 ) mGy, DLP = ( 745.49 ) mGycm TECHNIQUE: Transaxial CT imaging of the brain was performed without administration of intravenous contrast material. Individualized dose optimization techniques were used for this CT. COMPARISON: 01/16/2018 FINDINGS: Localized, sessile to mildly polypoid soft tissue thickening in the right parietal scalp as seen on image 29, more conspicuous and polypoid since 01/16/2018. Normal calvarium. There is moderate cerebral atrophy with widening of the extra-axial spaces and ventricular dilatation. There are areas of decreased attenuation within the white matter tracts of the supratentorial brain, consistent with microvascular disease changes. Normal basal ganglia and thalami. Normal brainstem. Normal cerebellum. There is no intracranial hemorrhage. There are no findings of an acute ischemic infarction. Normal visualized paranasal sinuses. CT/Brain/Head without Contrast IMPRESSION: 1. No acute intracranial hemorrhage or mass effect. 2. Increased size of sessile/mildly polypoid soft tissue nodule of the right posterior scalp. Advise correlation with visual inspection/palpation. 3. Central parenchymal volume loss. White matter changes that are nonspecific but most commonly associated with chronic small vessel ischemic disease. Electronically Signed: Lorenzo Acevedo MD at 13:58 EDT , Service support ,
--- NOTE | 2019-01-10 12:20 | RAD_ITS ---
STUDY: X-RAY CHEST REASON FOR EXAM: Female, 83 years old. Chest pain TECHNIQUE: PA and lateral views of the chest. COMPARISON: 01/16/2018 FINDINGS: There is hyperinflation of the lungs consistent with chronic obstructive lung disease (COPD). There is no demonstrated pleural abnormality. Normal size heart. Normal mediastinum and monika. Normal visualized pulmonary arteries. There is atherosclerotic calcification of the aortic arch with tortuosity. There is demineralization of the osseous structures. Normal visualized ribs, clavicles, and shoulders. There is no demonstrated abnormality of the visualized soft tissue structures of the upper abdomen. RAD/Chest PA and Lateral IMPRESSION: Stable, nonacute portable x-ray examination of the chest. Electronically Signed: Lorenzo Acevedo MD at 13:55 EDT , Service support ,
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
[2019-01-10 12:43] LABS: Absolute Lymphocyte Count 0.86 X10^3/ul (0.83-4.51); Absolute Neutrophil Count 3.5 X10^3/uL (2.0-7.7); Basophil# 0.03 X10^3/uL; Basophil% 0.6 % (0-1); Eosinophil# 0.03 X10^3/uL; Eosinophils% 0.6 % (0-5); Hematocrit 39.4 % (37-47); Hemoglobin 12.6 g/dl (12.0-15.0); Lymphocyte # 0.86 X10^3/ul (4.0); Lymphocyte % 17.3 % (19-41); Mean Corpuscular Hgb 26.4 pg (27.0-32.0); Mean Corpuscular Volume 82.6 fL (81-99); Mean Platelet Vol. 10.5 fl (6.2-12.0); Monocyte# 0.58 X10^3/uL; Monocyte% 11.7 % (0-10); Neutrophil # 3.46 X10^3/uL (2.7-7.7); Neutrophil % 69.6 % (47-70); Platelet Count 294 K/mm3 (150-450); RBC Distribution Width SD 50.6 fl (35.1-43.9); Red Blood Count 4.77 M/mm3 (4.2-5.4)
[2019-01-10 12:46] LABS: POSITIVE COUNT NO; POSITIVE DIFFERENTIAL NO; POSITIVE MORPHOLOGY NO
[2019-01-10 13:07] LABS: AST(SGOT) 20 U/L (15-37); Alanine Aminotransfer ALT/SGPT 17 U/L (13-56); Albumin, Serum 3.5 g/dL (3.2-5.0); Alkaline Phosphatase 87 U/L (45-117); Anion Gap 6 (5-15); BUN 17 mg/dL (7-18); Calcium,Total 8.6 mg/dL (8.5-10.1); Chloride 106 mmol/L (98-107); EST Glomerular Filtration Rate 56 mL/min (>60); Est Glom Filt Rate - Afr Amer 68 mL/min (>60); Estimated Creatinine Clearance 41.45 ml/min; Globulin 3.5 g/dL (2.2-4.2); Glucose 109 mg/dL (74-106); Potassium 4.1 mmol/L (3.5-5.1); Sodium Level 135 mmol/L (136-145); Thyroid Stim Hormone (TSH) 1.68 uIU/mL (0.358-3.74)
[2019-01-10 13:40] LABS: Alcohol, Blood (Medical)-Serum < 3.0 mg/dL
[2019-01-10 14:16] LABS: Mucous, Urine 0 SEEN /hpf (<or=2+); Red Blood Cells-Urine 0 SEEN /hpf (0-5)
[2019-01-10 14:23] LABS: Color, Urine Yellow (Yellow); Glucose, Dipstick Normal (Normal); Ketone-Dipstick 5 mg/dl (Negative); Leukocyte Esterase-Dipstick 500 /ul (Negative); Nitrite-Dipstick Negative (Negative); Occult Blood-Urine 250 /ul (Negative); Protein-Dipstick 15 mg/dl (Negative); Urine Bilirubin Dipstick Negative (Negative); Urine Clarity Cloudy (Clear); Urine Urobilinogen Normal (Normal)
[2019-01-10 14:29] LABS: Amorphous Sediment 1+; Bacteria 1+ /hpf (None Seen); Squamous Epithelial Cells - UA 10-25 SEEN /hpf (5-10)
[2019-01-10 14:31] LABS: White Blood Cells 0-5 SEEN /hpf (0-5)
[2019-01-10 14:44] VITALS: PULSE 80; RESP 16; O2SAT 91
[2019-01-10 15:20] VITALS: BP 151/76; PULSE 83; RESP 15; O2SAT 90
[2019-01-10 16:05] LABS: Amphetamine Urine VISTA NEGATIVE (<1000 ng/mL); Barbiturate Urine VISTA NEGATIVE (< 200 ng/mL); Benzodiazepine Urine VISTA NEGATIVE (< 200 ng/mL); Cocaine Urine VISTA NEGATIVE (< 300 ng/mL); Ecstacy Urine VISTA NEGATIVE (< 500 ng/mL); Methadone Urine VISTA NEGATIVE (< 300 ng/mL); PCP Urine VISTA NEGATIVE (< 25 ng/mL); THC Urine VISTA NEGATIVE (< 50 ng/mL); Vista UDS pH Range 6
[2019-01-10 17:06] VITALS: BP 133/64; PULSE 72; RESP 14; O2SAT 94
== END 2019-01-10 18:12 | disposition home or self-care (01) ==
PROVIDERS: Emergency Provider Emergency Medicine; Family Provider Family Medicine; PCP Family Medicine
DX: F03.91 Unspecified dementia, unspecified severity, with behavioral disturbance (principal); F32.9 Major depressive disorder, single episode, unspecified; J44.9 Chronic obstructive pulmonary disease, unspecified; Z79.899 Other long term (current) drug therapy; Z66 Do not resuscitate
CPT/HCPCS: 70450; 71046; 80053; 80307; 80320; 81001; 84443; 85025; 93005; 99285; G0480